=== PATIENT | female | born 1965 | race Caucasian/White ===

== ENCOUNTER 2020-05-03 09:53 | Emergency (ER) | payer MEDICAID ==
[~2020-05-03] VITALS: Ht 162.6 cm; Wt 54.4 kg
[2020-05-03 09:53] VITALS: BP 114/76
[~2020-05-03 09:53] MED LIST: PHEN100C4 PO
[2020-05-03] MEDS ORDERED: PHEN100C3 PO (10:00)
[2020-05-03] MEDS ORDERED: PHENYTOIN 100 MG/4 ML UDC PO ONE (10:05)
[2020-05-03 11:11] VITALS: BP 128/78
== END 2020-05-03 11:11 | disposition home or self-care (01) ==
LOC: MED 09:53
DX: R56.9 Unspecified convulsions (principal)
CPT/HCPCS: 99283